=== PATIENT | female | born 1980 | race Caucasian/White ===

== ENCOUNTER 2020-12-12 07:58 | Outpatient (REF) | payer OTHER, SELFPAY ==
[2020-12-13 07:08] LABS: CT PCR NOT DETECTED (Not Detect.); NG PCR NOT DETECTED (Not Detect.)
[2020-12-13 10:37] LABS: BV Int Neg Control Negative (Negative); BV Int Pos Control Positive (Positive)
[2020-12-15 16:16] LABS: HPV mRNA E6/E7 rflx Not Detected (Not Detected)
== END 2020-12-12 07:59 | disposition home or self-care (01) ==
LOC: HO.LAB 07:58
PROVIDERS: PCP Internal Medicine; Visit Provider Advanced Practice Midwife
DX: Z01.411 Encounter for gynecological examination (general) (routine) with abnormal findings (principal); Z11.51 Encounter for screening for human papillomavirus (HPV); N93.9 Abnormal uterine and vaginal bleeding, unspecified; N92.1 Excessive and frequent menstruation with irregular cycle; F17.200 Nicotine dependence, unspecified, uncomplicated; Z20.2 Contact with and (suspected) exposure to infections with a predominantly sexual mode of transmission
CPT/HCPCS: 87480; 87491; 87510; 87591; 87624; 87660; 88142

== ENCOUNTER 2020-12-15 10:51 | Emergency (ER) | payer OTHER, SELFPAY ==
--- NOTE | ~2020-12-15 | CT_ITS ---
EXAMINATION: CT ABDOMEN AND PELVIS WITHOUT CONTRAST CLINICAL INFORMATION: Right lower quadrant and suprapubic tenderness. IUD. COMPARISON: None TECHNIQUE: Multidetector volumetric imaging was performed from the superior aspect of the liver through the pubic symphysis. Sagittal and coronal reformatted images were obtained on the technologist's workstation. This CT examination was performed using dose optimization techniques as appropriate, variously including the following: *Automated exposure control *Adjustment of mA and/or kV according to patient size (this includes techniques or standardized protocols for targeted exams where dose is matched to indication/reason for exam; i.e. extremities or head) *Use of iterative reconstruction technique DLP: 754 mGy-cm FINDINGS: The study does not demonstrate a high level of IV contrast enhancement. However there is excretion by each kidney into the urinary collecting system. The injector information suggests 7 mL was administered and it was disarmed by user LUNG BASES: No suspicious abnormality in the visualized lower chest. There may be a trace sliding-type hiatal hernia. LIVER, GALLBLADDER, AND BILIARY TREE: No suspicious focal liver lesion. There is a 1 cm circumscribed low attenuating lesion in the ventral aspect of hepatic segment 5. This is too small to characterize. Possibilities include a cyst. There is no opaque gallstone. No biliary dilation. PANCREAS: No suspicious abnormality. No localized peripancreatic stranding. SPLEEN: Within normal limits ADRENAL GLANDS: Normal KIDNEYS AND URETERS: As described there is no dilation of the urinary collecting system on either side. However there is excretion into the collecting system bilaterally. No large renal mass. BLADDER: There is some faint dependent excreted contrast. The bladder is mildly distended. No suspicious focal lesion. GASTROINTESTINAL TRACT: There is no localized colonic wall thickening. Segments of the colon are not well distended. A small segment of a normal caliber appendix is demonstrated without surrounding stranding. There is no significant small bowel dilation. There is fatty prominence of the ileocecal valve. ABDOMINAL WALL: No significant hernia is appreciated. LYMPH NODES: There are no measurably enlarged abdominal or pelvic lymph nodes. There is no free intraperitoneal fluid. VASCULAR: There is no abdominal aortic aneurysm. PELVIC VISCERA: There is an IUD present. The uterus is bulky. There are contour abnormalities isodense with the myometrium suggesting fibroids. There is likely a fluid saturated tampon present. There is no suspicious adnexal mass or collection. The right ovary is not enlarged. There may be a physiologic cyst in the left ovary. OSSEOUS STRUCTURES: There is artifact related to an implanted power generator in the left gluteal soft tissues with a lead extending into the lower thoracic spinal canal. Nonaggressive appearing sclerotic lesion involving the cortex of the dorsal aspect of the right iliac wing. Similar possible bone island in the medial left iliac bone adjacent to the ventral aspect of the left SI joint. Several other small sclerotic foci likely bone islands. There is apparent ankylosis ventrally at L2/L3. CT/CT abdomen pelvis wo con IMPRESSION: There is some excreted urinary contrast without evidence of urinary obstruction. There is no CT evidence of acute appendicitis or high-grade bowel obstruction. I suspect some uterine fibroids with an IUD present.
[2020-12-15 11:34] VITALS: BP 144/89; PULSE 82; RESP 16; TEMP 36.7; O2SAT 98; BMI 31.4
--- NOTE | 2020-12-15 11:50 | ED_ITS ---
HPI - Abdominal Pain General Chief Complaint: Abdominal Pain Stated Complaint: abd pain Time Seen by Provider: 12/15/20 11:34 Source: patient Mode of arrival: ambulatory Limitations: no limitations History of Present Illness HPI narrative: 40-year-old female who presents emergency department for evaluation of abdominal pain. She states that she developed severe, constant, shooting pain in her right lower quadrant and suprapubic area of her abdomen which started suddenly at 4:00 a.m.. She states that the pain is severe and is greater than 10/10. The patient denied fever, chills, chest pain or shortness of breath. She states that she has had persistent nausea since October of 2020 and has seen a therapy administrative assistant to prescribed Zantac. She states that she vomits 2 to 3 times a week. She denied frequency, urgency, dysuria, change in her bowel movements. The patient states that she had an IUD placed 3 years prior for severe vaginal bleeding, she states that the IUD did make her periods less severe however she states she bleeds daily and uses anywhere from 1-5 tampons per day. Patient was seen by the district manager major accounts sales Lizbet Moseley on 12/12/2020 for abnormal vaginal bleeding In reviewing the note from that visit, the patient has a Mirena IUD for control for 3 years . The workup as an outpatient was to include a pelvic ultrasound to determine the position of the IUD and laboratory evaluation. Patient states she has not gotten this workup yet. The patient is fully vaccinated for COVID-19 and received the second Pfizer vaccine in July 2020. Related Data Home Medications Medication Instructions Recorded Confirmed levonorgestrel 20 mcg/24 hours (7 INTRAUTERINE 12/12/20 yrs) 52 mg intrauterine device (Mirena) Previous Rx's Medication Instructions Recorded morphine 15 mg immediate release 15 mg PO Q4-6H PRN #14 tab 12/15/20 tablet Allergies Allergy/AdvReac Type Severity Reaction Status Date / Time acetaminophen [From PERCOCET] Allergy Unknown HIVES Verified 12/12/20 08:12 oxycodone [Percocet] Allergy Unknown pruritus Verified 12/12/20 08:12 Sulfa (Sulfonamide Allergy Unknown VOMITING , Verified 12/12/20 08:12 Antibiotics) stomach [SULFA (SULFONAMIDE upset ANTIBIOTICS)] From PERCOCET Allergy Unknown HIVES Uncoded 12/12/20 08:12 sulfa drugs Allergy Unknown unknown Uncoded 12/12/20 08:12 Review of Systems Review of Systems Yes all other systems are reviewed and are negative Physical Exam Vital Signs: Vital Signs: Last Vital Signs Temp 98.1 F 12/15/20 11:34 Pulse 67 12/15/20 14:06 Resp 18 12/15/20 14:06 BP 112/79 12/15/20 14:06 Pulse Ox 100 12/15/20 14:06 Body Mass Index 31.4 Const: Other: Very pleasant and cooperative female patient, she does appear to be in distress secondary to her abdominal pain. HENMT: Head: Yes normal to inspection, Yes normocephalic and Yes atraumatic Ears: external ears normal General nose exam: Normal external nose present Face and sinus: Yes normal facial exam Mouth: Normal oral and palatal mucosa present Throat: Yes posterior oropharynx normal Eyes: General: appearance normal, both eyes and all related structures Pupils: Equal, round and reactive pupils present Neck: Neck: Yes normal visual inspection, Yes no lymphadenopathy, Yes trachea midline and Yes supple Chest: Chest palpation & inspection: normal inspection of the chest and normal palpation of entire chest wall Resp: Effort & Inspection: normal respiratory effort and able to speak in complete sentences Auscultation: clear to auscultation bilaterally Cardio: Rate: regular rate Rhythm: regular rhythm Heart sounds: S1 normal heart sound present, S2 normal heart sound present and no murmurs GI: Inspection: Yes normal to inspection Palpation (GI): Soft to palpation, Tenderness to palpation present (GI) in the RLQ (Moderate), in the RUQ (Mild) and suprapubicly (Moderate) and no guarding Auscultation: normal bowel sounds : General: Yes no CVA tenderness Back/Spine/Pelvis: Back: no CVA tenderness Skin: General skin exam: no rashes or lesions noted Neuro: Cranial nerves: Yes CN's II-XII intact bilaterally and Yes Equal, round and reactive pupils present Cognition (Neuro): normal cognition Motor exam (neuro): 5/5 motor strength present throughout Extrem: General: Yes normal to inspection Psych: Appearance: grossly normal Speech and movement: Normal speech and movement present Affect: normal affect Attitude: cooperative Thought process: Normal thought process present Thought content: Normal thought content present Course Course Course Narrative: 40-year-old female who presents emergency department for evaluation of sudden onset of right lower quadrant and suprapubic abdominal pain that started at 4:00 a.m.. The patient's pain is greater than 10/10. Vital signs revealed an elevated blood pressure of 144/89 otherwise unremarkable. The patient's exam did reveal mild right upper quadrant and moderate right lower quadrant and moderate suprapubic tenderness. The patient does have an IUD and she recently saw her district manager major accounts sales for abnormal bleeding and schedule as an outpatient get an ultrasound to determine the cause of her bleeding and to determine the position of the IUD. The differential diagnosis includes but is not limited to uterine perforation, ureteral stone, cholecystitis, appendicitis, colitis. I ordered a laboratory evaluation to include CBC, CMP, lipase, urinalysis, urine test. CT scan of the abdomen pelvis with IV contrast will also be obtained. Patient was ordered to get normal saline IV x1 L. her pain was treated with morphine 4 mg IV and her nausea was treated with Zofran 4 mg IV. 1331: The patient's laboratory evaluation revealed a [place] [address] otherwise was unremarkable. Urine test was negative. Urinalysis revealed 2+ blood. The patient only got minimal relief from her 1st dose of morphine therefore she was given a 2nd dose of morphine [address] scan has not been done and states there was difficulty establishing IV access on this patient. 1612: The patient's CT scan of the abdomen pelvis did not reveal an acute cause for the patient's pain. The patient does have an irregular shaped uterus which is most likely consistent with fibroids. The IUD is in place.. The patient get some relief with the IV morphine however her IV line is no longer function. Patient was ordered to get morphine 8 mg IM. The patient will be discharged home. She was advised to take Tylenol and ibuprofen for pain. For pain not relieved by these medications she was prescribed morphine 15 mg every 4 hours as needed. Patient was advised to follow-up with her OBGYN for further evaluation and return if her symptoms get worse or she develops any new symptoms that are concerning to her. MDM - Abdominal Pain Lab Data Result diagrams: 12/15/20 12:12 12/15/20 12:57 Labs: Lab Results 12/15/20 12/15/20 12/15/20 Range/Units 12:12 12:57 12:57 WBC 11.3 H (4.8-10.8) X10*3/uL RBC 4.74 (4.20-5.50) X10*6/uL Hgb 16.3 H (12.0-16.0) g/dl Hct 45.6 (37-47) % MCV 96.2 (80-98) fL MCH 34.4 H (27.0-33.0) pg MCHC 35.7 H (31.0-35.0) g/dl RDW 12.3 (11.0-16.0) % Plt Count 303 (160-400) X10*3/uL MPV 9.1 L (9.4-12.3) fL Immature Gran % (Auto) 0.4 (0.0-0.4) % Neut % (Auto) 73.9 H (45-73) % Lymph % (Auto) 14.1 L (20-40) % Maury % (Auto) 8.2 (2-11) % Eos % (Auto) 2.2 (0-4) % Baso % (Auto) 1.2 (0-2) % Lymph # (Auto) 1.6 (1.2-4.9) X10*3/uL Maury # (Auto) 0.9 (0.1-1.2) X10*3/uL Eos # (Auto) 0.3 (0.0-0.4) X10*3/uL Baso # (Auto) 0.1 (0.0-0.2) X10*3/uL Abs Immat Gran (auto) 0.04 H (0.00-0.03) X10*3/uL Absolute Neuts (auto) 8.3 (2.0-8.3) X10*3/uL Absolute Nucleated RBC 0.000 (0.0-0.012) X10*3/uL Nucleated RBC % (auto) 0.0 (0.0-0.2) /100WBC Sodium 140 (135-145) mmol/L Potassium 4.1 (3.3-5.1) mmol/L Chloride 110 H (96-108) mmol/L Carbon Dioxide 23 (22-29) mmol/L Anion Gap 11 L (12-20) BUN 7 L (9-16) mg/dL Creatinine 0.84 (0.5-1.4) mg/dL Estim Creat Clear Calc 97.7 Estimated GFR > 60 Random Glucose 88 (60-115) mg/dL Calcium 9.1 (8.4-10.2) mg/dL Total Bilirubin 0.5 (0.0-1.0) mg/dL AST 12 (5-31) U/L ALT 19 (0-31) U/L Alkaline Phosphatase 84 (39-117) U/L Total Protein 6.3 L (6.5-8.0) g/dL Albumin 3.9 (3.5-5.0) g/dL Lipase 21 (8-78) U/L Urine Color YELLOW Urine Appearance CLEAR Urine pH 7.0 (5.0-8.0) Ur Specific [place] 1.010 (1.005-1.025) Urine Protein NEG (NEG-TRACE) MG/DL Urine Glucose (UA) NEG (NEG) MG/DL Urine Ketones NEG (NEG) MG/DL Urine Blood 2+ H (NEG) Urine Nitrite NEG (NEG) Ur Leukocyte Esterase NEG (NEG) Urine RBC 0-2 (0) /HPF Urine WBC 0 (0-4) /HPF Ur Squamous Epith Cells TRACE /LPF Urine Bacteria TRACE /LPF Urine Test (NEGATIVE) 12/15/20 Range/Units 12:57 WBC (4.8-10.8) X10*3/uL RBC (4.20-5.50) X10*6/uL Hgb (12.0-16.0) g/dl Hct (37-47) % MCV (80-98) fL MCH (27.0-33.0) pg MCHC (31.0-35.0) g/dl RDW (11.0-16.0) % Plt Count (160-400) X10*3/uL MPV (9.4-12.3) fL Immature Gran % (Auto) (0.0-0.4) % Neut % (Auto) (45-73) % Lymph % (Auto) (20-40) % Maury % (Auto) (2-11) % Eos % (Auto) (0-4) % Baso % (Auto) (0-2) % Lymph # (Auto) (1.2-4.9) X10*3/uL Maury # (Auto) (0.1-1.2) X10*3/uL Eos # (Auto) (0.0-0.4) X10*3/uL Baso # (Auto) (0.0-0.2) X10*3/uL Abs Immat Gran (auto) (0.00-0.03) X10*3/uL Absolute Neuts (auto) (2.0-8.3) X10*3/uL Absolute Nucleated RBC (0.0-0.012) X10*3/uL Nucleated RBC % (auto) (0.0-0.2) /100WBC Sodium (135-145) mmol/L Potassium (3.3-5.1) mmol/L Chloride (96-108) mmol/L Carbon Dioxide (22-29) mmol/L Anion Gap (12-20) BUN (9-16) mg/dL Creatinine (0.5-1.4) mg/dL Estim Creat Clear Calc Estimated GFR Random Glucose (60-115) mg/dL Calcium (8.4-10.2) mg/dL Total Bilirubin (0.0-1.0) mg/dL AST (5-31) U/L ALT (0-31) U/L Alkaline Phosphatase (39-117) U/L Total Protein (6.5-8.0) g/dL Albumin (3.5-5.0) g/dL Lipase (8-78) U/L Urine Color Urine Appearance Urine pH (5.0-8.0) Ur Specific [place] (1.005-1.025) Urine Protein (NEG-TRACE) MG/DL Urine Glucose (UA) (NEG) MG/DL Urine Ketones (NEG) MG/DL Urine Blood (NEG) Urine Nitrite (NEG) Ur Leukocyte Esterase (NEG) Urine RBC (0) /HPF Urine WBC (0-4) /HPF Ur Squamous Epith Cells /LPF Urine Bacteria /LPF Urine Test NEGATIVE (NEGATIVE) Discharge Plan Discharge Clinical Impression: Dysfunctional uterine bleeding Abdominal pain Qualifiers: Abdominal location: lower abdomen, unspecified Qualified Code(s): R10.30 - Lower abdominal pain, unspecified Patient Disposition: Home, Self-Care Instructions: Dysfunctional Uterine Bleeding (ED), Abdominal Pain (ED) Additional Instructions: Your blood work was unremarkable. Urinalysis was unremarkable as well. The CT scan of your abdomen pelvis revealed that the IUD was in the uterus. Your uterus has an irregular shape which suggesting that you might have fibroids and this might explain why you have abnormal bleeding. The CT scan did not reveal a clear cause for your pain. Take ibuprofen 200 mg pills, 3 pills every 6 hours as needed for pain. Take Tylenol (acetaminophen) 500 mg pills, 2 pills every 4-6 hours as needed for pain. For pain not relieved by ibuprofen or Tylenol take morphine 15 mg pills, 1 pill every 4 hours as needed for pain. Do not drive or work while taking this medication since they can cause sleepiness. Morphine is a narcotic medication that can be addicting. If you are concerned about addiction you can ask the pharmacist for less pills or do not get this prescription filled. You should contact your OBGYN and complete the outpatient workup as per their directions. Follow-up with your doctor in 2 days. Please return to the emergency department if your symptoms get worse or if you develop any symptoms that are concerning to you. Prescriptions: New morphine 15 mg tablet 15 mg PO Q4-6H PRN (Reason: pain) Qty: 14 RF: 0 No Action Mirena 20 mcg/24 hours (7 yrs) 52 mg intrauterine device intrauterine RF: 0 PMFSH Past Medical History PMFSH Narrative: Past medical history: None. Past surgical history: C- section. Social history: The patient smokes greater than 1 pack of cigarettes per day times 15 years, she drinks 1-2 glasses of wine twice a week. She denies drug use. Medical History delivery delivered Family History Family History Mother Heart attack, Onset Age: 35 Maternal Aunt Breast cancer Paternal Aunt Breast cancer Family/Other Breast cancer Social History Social History Alcohol intake: current Alcohol intake frequency: a few times a week Tobacco use type: Cigarette Cigarettes Per Day: 22 Advance Directives: No Current occupational status: employed Gender identity: Female
[2020-12-15 12:16] LABS: MANUAL DIFF FLAG NO
[2020-12-15 12:18] LABS: Basophils Absolute Auto 0.1 X10*3/uL (0.0-0.2); Basophils Percent Auto 1.2 % (0-2); Eosinophils Absolute Auto 0.3 X10*3/uL (0.0-0.4); Eosinophils Percent Auto 2.2 % (0-4); Hematocrit 45.6 % (37-47); Hemoglobin 16.3 g/dl (12.0-16.0); Imm Gran Abs Auto 0.04 X10*3/uL (0.00-0.03); Imm Gran Pct Auto 0.4 % (0.0-0.4); Lymphocytes Absolute Auto 1.6 X10*3/uL (1.2-4.9); Lymphocytes Percent Auto 14.1 % (20-40); Mean Corpuscular HGB Conc 35.7 g/dl (31.0-35.0); Mean Corpuscular Hemoglobin 34.4 pg (27.0-33.0); Mean Corpuscular Volume 96.2 fL (80-98); Mean Platelet Volume 9.1 fL (9.4-12.3); Monocytes Absolute Auto 0.9 X10*3/uL (0.1-1.2); Monocytes Percent Auto 8.2 % (2-11); Neutrophils Absolute Auto 8.3 X10*3/uL (2.0-8.3); Neutrophils Percent Auto 73.9 % (45-73); Platelet Count 303 X10*3/uL (160-400); Red Blood Count 4.74 X10*6/uL (4.20-5.50); Red Cell Distribution Width 12.3 % (11.0-16.0); White Blood Count 11.3 X10*3/uL (4.8-10.8)
[2020-12-15] MEDS: Morphine Sulfate 4 MG/ML CARTRIDGE IVPUSH ×2 (12:58→13:59)
[2020-12-15] MEDS: ondansetron HCL 4 MG/2 ML VIAL IVPUSH (12:58)
[2020-12-15] MEDS: 0.9 % Sodium Chloride 1,000 ML 999 ML IV (12:58)
[2020-12-15 13:16] LABS: Appearance Urine CLEAR; Color Urine YELLOW; Glucose Urine UA NEG (NEG); Leukocyte Esterase Urine NEG (NEG); Nitrite Urine NEG (NEG); UACC Culture Trigger NO; Urine Blood 2+ (NEG); Urine Ketones NEG (NEG); Urine Protein NEG (NEG-TRACE)
[2020-12-15 13:20] LABS: UPreg QC Valid YES; Urine Pregnancy NEGATIVE (NEGATIVE)
[2020-12-15 13:23] LABS: Alanine Aminotransferase 19 U/L (0-31); Albumin Level 3.9 g/dL (3.5-5.0); Alkaline Phosphatase 84 U/L (39-117); Anion Gap 11 (12-20); Aspartate Amino Transferase 12 U/L (5-31); Bilirubin Total 0.5 mg/dL (0.0-1.0); Blood Urea Nitrogen 7 mg/dL (9-16); Calcium 9.1 mg/dL (8.4-10.2); Carbon Dioxide 23 mmol/L (22-29); Chloride 110 mmol/L (96-108); Creatinine Clr Calc Pharmacy 97.7; Estimated Glomerular Filt Rate > 60; Glucose Random 88 mg/dL (60-115); Lipase 21 U/L (8-78); Potassium 4.1 mmol/L (3.3-5.1); Sodium 140 mmol/L (135-145); Total Protein 6.3 g/dL (6.5-8.0)
[2020-12-15 13:31] LABS: RBC Urine 0-2 /HPF (0); WBC Urine 0 /HPF (0-4)
[2020-12-15 13:32] LABS: Bacteria Urine TRACE /LPF; Squamous Epithelial Cell Urine TRACE /LPF
[2020-12-15 14:06] VITALS: BP 112/79; PULSE 67; RESP 18; O2SAT 100
[2020-12-15 16:34] VITALS: BP 107/65; PULSE 63; RESP 17; O2SAT 99
[2020-12-15] MEDS: Morphine Sulfate 4 MG/ML CARTRIDGE 8 MG IM (17:25)
== END 2020-12-15 17:58 | disposition home or self-care (01) ==
PROVIDERS: Emergency Provider Emergency Medicine Emergency Medical Services; PCP Internal Medicine
DX: N93.8 Other specified abnormal uterine and vaginal bleeding (principal); R10.31 Right lower quadrant pain; F17.210 Nicotine dependence, cigarettes, uncomplicated; Z71.6 Tobacco abuse counseling; Z79.899 Other long term (current) drug therapy
CPT/HCPCS: 36415; 74176; 80053; 81001; 81025; 83690; 85025; 96361; 96372; 96374; 96375; 96376; 99284; J2270; J2405

== ENCOUNTER → 2020-12-24 13:41 | Outpatient (BNVA) | payer OTHER, SELFPAY | PROVIDERS: PCP Internal Medicine; Visit Provider Advanced Practice Midwife | DX: N93.9 Abnormal uterine and vaginal bleeding, unspecified (principal); N92.1 Excessive and frequent menstruation with irregular cycle; N76.0 Acute vaginitis; Z97.5 Presence of (intrauterine) contraceptive device; R10.2 Pelvic and perineal pain; B96.89 Other specified bacterial agents as the cause of diseases classified elsewhere | CPT/HCPCS: 81003; 81025 ==

== ENCOUNTER 2020-12-24 15:28 | Emergency (ER) | payer OTHER, SELFPAY ==
[2020-12-24 16:06] VITALS: BP 142/83; PULSE 79; RESP 18; TEMP 36.7; O2SAT 98; BMI 31.3
--- NOTE | 2020-12-24 16:10 | ED_ITS ---
HPI - Recheck/Abnormal Lab/Rx General Chief Complaint: Urogenital-Female Stated Complaint: abnormal cat scan Time Seen by Provider: 12/24/20 16:06 Related Data Home Medications Medication Instructions Recorded Confirmed levonorgestrel 20 mcg/24 hours (7 INTRAUTERINE 12/12/20 yrs) 52 mg intrauterine device (Mirena) tramadol 50 mg tablet 50 mg PO TID PRN 12/24/20 Previous Rx's Medication Instructions Recorded morphine 15 mg immediate release 15 mg PO Q4-6H PRN #14 tab 12/15/20 tablet morphine 15 mg immediate release 15 mg PO Q4-6H PRN #14 tab 12/15/20 tablet doxycycline hyclate 100 mg capsule 100 mg PO BID 14 Days #28 cap 12/24/20 metronidazole 500 mg tablet 500 mg PO BID 14 Days #28 tab 12/24/20 Allergies Allergy/AdvReac Type Severity Reaction Status Date / Time acetaminophen [From PERCOCET] Allergy Unknown HIVES Verified 12/24/20 13:54 oxycodone [Percocet] Allergy Unknown pruritus Verified 12/24/20 13:54 Sulfa (Sulfonamide Allergy Unknown VOMITING , Verified 12/24/20 13:54 Antibiotics) stomach [SULFA (SULFONAMIDE upset ANTIBIOTICS)] From PERCOCET Allergy Unknown HIVES Uncoded 12/12/20 08:12 sulfa drugs Allergy Unknown unknown Uncoded 12/12/20 08:12 [facility] Past Medical History Medical History delivery delivered Family History Family History Mother Heart attack, Onset Age: 35 Maternal Aunt Breast cancer Paternal Aunt Breast cancer Family/Other Breast cancer Social History Social History Alcohol intake: current Alcohol intake frequency: a few times a week Tobacco use type: Cigarette Cigarettes Per Day: 22 Advance Directives: No Advance Directives Information Provided: No Current occupational status: employed Gender identity: Female Physical Exam Vital Signs: Vital Signs: Last Vital Signs Temp 98.1 F 12/24/20 16:06 Pulse 79 12/24/20 16:06 Resp 18 12/24/20 16:06 BP 142/83 H 12/24/20 16:06 Pulse Ox 98 12/24/20 16:06 Body Mass Index 31.3 Course Course Course Narrative: 1610-This is a rapid medical exam. 40 yo female here from OB office with concern for ?PID, also concern for abnormal CT scan done last week here in ED. Patient does reports right sided abdominal pain which radiates to right back. Will check labs, CT NG. Had urine done today in OB office. Deferred additional HPI, ROS, and PE to primary provider MDM - Recheck/Abnormal Lab/Rx Lab Data Labs: Lab Results 12/24/20 Range/Units 17:53 Chlam trachomat DNA PCR Cancelled N.gonorrhoeae DNA (PCR) Cancelled Discharge Plan Discharge Clinical Impression: Urinary tract infection Patient Disposition: Elopement Prescriptions: No Action morphine 15 mg tablet 15 mg PO Q4-6H PRN (Reason: pain) Qty: 14 RF: 0 morphine 15 mg tablet 15 mg PO Q4-6H PRN (Reason: pain) Qty: 14 RF: 0 Mirena 20 mcg/24 hours (7 yrs) 52 mg intrauterine device intrauterine RF: 0 tramadol 50 mg tablet 50 mg PO TID PRNRF: 0 doxycycline hyclate 100 mg capsule 100 mg PO BID 14 Days Qty: 28 RF: 0 metronidazole 500 mg tablet 500 mg PO BID 14 Days Qty: 28 RF: 0 Interventions: ED Discharge Assessment Last Done: 12/24/20 18:25 Discharge Date/Time: 12/24/20 19:09
== END 2020-12-24 19:09 | disposition left against medical advice (07) ==
LOC: HO.ED 19:07
PROVIDERS: Emergency Provider Emergency Medicine; PCP Internal Medicine
DX: N39.0 Urinary tract infection, site not specified (principal); R79.89 Other specified abnormal findings of blood chemistry; F17.210 Nicotine dependence, cigarettes, uncomplicated; Z71.6 Tobacco abuse counseling; Z79.899 Other long term (current) drug therapy
CPT/HCPCS: 99283

== ENCOUNTER 2021-01-01 13:40 | Outpatient (REF) | payer OTHER, SELFPAY ==
--- NOTE | ~2021-01-01 | US_ITS ---
EXAMINATION: US PELVIS CLINICAL INFORMATION: Abnormal uterine bleeding COMPARISON: Previous CT of the abdomen and pelvis December 2020 and pelvic ultrasound most recent July 2011 TECHNIQUE: Ultrasound of the pelvis is performed using both transabdominal and transvaginal transducers along with Doppler. Transvaginal imaging is performed due to inadequate visualization transabdominally. FINDINGS: The uterus is anteverted and measures 11.4 x 5.5 x 5.7 cm in dimension. There is an IUD in the uterus in satisfactory position. There are 2 focal uterine lesions suggestive of fibroids measuring 2.1 x 1.5 x 2 cm in the right posterior uterine body and 2.3 x 2 x 2 cm subserosal to the right anterior uterine body. Endometrial thickness is normal measuring 1.1 cm. The ovaries are normal-appearing. The right ovary measures 3.5 x 1.9 x 2.5 cm and the left ovary measures 3.8 x 2.5 x 2.4 cm. There is no fluid in the pelvis. US/US pelvic and transvaginal IMPRESSION: IUD in the uterus in satisfactory position. Normal thickness endometrium measuring 11 mm. 2 uterine fibroids. Normal-appearing ovaries.
== END 2021-01-01 13:41 | disposition home or self-care (01) ==
LOC: HO.US 13:40
PROVIDERS: PCP Internal Medicine; Visit Provider Advanced Practice Midwife
DX: N93.9 Abnormal uterine and vaginal bleeding, unspecified (principal); N92.1 Excessive and frequent menstruation with irregular cycle; Z97.5 Presence of (intrauterine) contraceptive device
CPT/HCPCS: 76830; 76856

== ENCOUNTER → 2021-01-15 08:37 | Outpatient (BNVA) | payer OTHER, SELFPAY | PROVIDERS: Visit Provider Advanced Practice Midwife ==

== ENCOUNTER 2021-01-24 13:27 | Outpatient (REF) | payer OTHER, SELFPAY | END 2021-01-24 13:28 | disposition home or self-care (01) | LOC: HO.LAB 13:27 | PROVIDERS: Visit Provider Advanced Practice Midwife | DX: Z30.432 Encounter for removal of intrauterine contraceptive device (principal); N93.9 Abnormal uterine and vaginal bleeding, unspecified | CPT/HCPCS: 58100; 58301; 88305 ==

== ENCOUNTER → 2021-02-07 11:11 | Outpatient (BNVA) | payer OTHER, SELFPAY | PROVIDERS: Visit Provider Advanced Practice Midwife ==

== ENCOUNTER 2021-02-12 15:06 | Outpatient (REF) | payer OTHER, SELFPAY ==
--- NOTE | ~2021-02-12 | MM_ITS ---
EXAMINATION: MM SCREENING DIGITAL BREAST TOMOSYNTHESIS, BILATERAL CLINICAL INFORMATION: Screening. Asymptomatic. The lifetime risk of breast cancer based on the Tyrer-Cuzick Model is 10.8%. COMPARISON: Mammography: None. TECHNIQUE: Digital breast tomosynthesis is performed in both the craniocaudal and mediolateral oblique views along with computer-aided detection (CAD). Synthesized 2D images are generated from the tomosynthesis. FINDINGS: There are scattered areas of fibroglandular density (ACR BI-RADS breast composition Category b). Examination of the right breast does not demonstrate any abnormal dominant mass or suspicious grouping of microcalcifications. 2 views of the left breast demonstrate questioned region of architectural distortion about 1 cm from the nipple superiorly for which spot compression views are recommended. Radiology staff will contact patient to obtain this study. MM/MM tomosynthesis screening BI IMPRESSION: Left breast density for further evaluation as described with spot compression views. ASSESSMENT: BI-RADS 0: Incomplete - Need Additional Imaging Evaluation RECOMMENDATION: 1. Additional views of the left breast. 2. Targeted ultrasound if warranted after review of the additional views. 3. Radiology department staff will contact the patient for additional imaging. This patient's information was entered into a reminder system with a target due date for their next mammogram.
== END 2021-02-12 15:07 | disposition home or self-care (01) ==
LOC: HO.MAMMO 15:06
PROVIDERS: Visit Provider Advanced Practice Midwife
DX: Z12.31 Encounter for screening mammogram for malignant neoplasm of breast (principal)
CPT/HCPCS: 77063; 77067

== ENCOUNTER 2021-02-14 13:11 | Outpatient (REF) | payer OTHER, SELFPAY ==
--- NOTE | ~2021-02-14 | MM_ITS ---
EXAMINATION: MM DIAGNOSTIC DIGITAL BREAST MAMMOGRAM, LEFT TARGETED LEFT BREAST ULTRASOUND CLINICAL INFORMATION: Asymmetric density anterior left breast. COMPARISON: Mammography: 02/12/2021. TECHNIQUE: Digital breast imaging obtained in spot compression craniocaudal and 90 degree mediolateral views. Targeted left breast ultrasound. FINDINGS: There are scattered areas of fibroglandular density (ACR BI-RADS breast composition Category b). Additional views show no significant mass, architectural abnormality, or abnormal calcifications. There is effacement of the majority of dense tissue with some residual dense parenchyma but without focal mass appreciated within the retroareolar region. Targeted left breast ultrasound did not demonstrate any abnormal cystic or solid mass. No region of abnormal distal sound shadowing appreciated. Results are discussed with the patient at time of visit. MM/MM tomosynthesis added views L IMPRESSION: No mammographic or ultrasound findings to suggest malignancy. ASSESSMENT: BI-RADS 1: Negative RECOMMENDATION: Routine annual mammography screening. This patient's information was entered into a reminder system with a target due date for their next mammogram.
--- NOTE | ~2021-02-14 | US_ITS ---
EXAMINATION: US DIAGNOSTIC ULTRASOUND BREAST, LEFT CLINICAL INFORMATION: Question region of architectural distortion anterior left breast.. COMPARISON: Mammography of same day and February 12, 2021. TECHNIQUE: Ultrasound of the breast is performed with real-time vera scale imaging and color Doppler. FINDINGS: Targeted left breast ultrasound did not demonstrate any abnormal cystic or solid mass. No region of abnormal distal sound shadowing appreciated. Results are discussed with the patient at time of visit. US/US breast LT limited IMPRESSION: No mammographic or ultrasound findings to suggest malignancy. ASSESSMENT: BI-RADS 1: Negative RECOMMENDATION: Routine annual mammography screening.
== END 2021-02-14 13:12 | disposition home or self-care (01) ==
LOC: HO.MAMMO 13:11
PROVIDERS: Visit Provider Advanced Practice Midwife
DX: R92.2 Inconclusive mammogram (principal)
CPT/HCPCS: 76642; 77061; 77065

== ENCOUNTER 2023-10-20 12:25 | Outpatient (AMB) | payer BC, SELFPAY ==
[2023-10-20 13:02] VITALS: BP 110/72; BMI 32.3
--- NOTE | 2023-10-20 13:02 | A.OFFVIS_ITS ---
Vital Signs 10/20/23 13:02 Height 5 ft 6 in Weight 200 lb BMI 32.3 BP 110/72 Intake Visit Reasons: ? 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 Allergies acetaminophen [From PERCOCET] Allergy (Unknown, Verified 10/20/23 13:03) HIVES oxycodone [Percocet] Allergy (Unknown, Verified 10/20/23 13:03) pruritus Sulfa (Sulfonamide Antibiotics) [SULFA (SULFONAMIDE ANTIBIOTICS)] Allergy (Unknown, Verified 10/20/23 13:03) VOMITING , stomach upset From PERCOCET Allergy (Unknown, Uncoded 12/12/20 08:12) HIVES sulfa drugs Allergy (Unknown, Uncoded 12/12/20 08:12) unknown Is last menstrual period known: Yes Last menstrual period: 09/15/23 HPI Comments Details: Patient is here today with concerns said she had skipped her last cycle in his about 5 weeks overdue. LMP September 14, regular cycles up until that date. Uses withdrawal method. Denies any hot flashes. Uses a clear blue parker to test for FSH and she reports it is negative. Occasional breast tenderness not presently. Denies any stress, surgeries, medical conditions or other concerns for stress. She denies any facial hair growth or new onset of acne. She did not PFSH Medical History (Updated 10/20/23 @ 13:36 by Lizbet Moseley CNM) Irregular menses delivery delivered Surgical History (Updated 10/20/23 @ 13:04 by MEGAN Calderon) Hx of tonsillectomy History of back surgery Hx of section Family History (Updated 10/20/23 @ 13:05 by MEGAN Calderon) Mother Heart attack, Onset Age: 35 Maternal Aunt Breast cancer Paternal Aunt Breast cancer Family/Other Breast cancer Maternal Aunt Ovarian cancer Maternal Aunt Colon cancer Social History Alcohol intake: current Alcohol intake frequency: a few times a week Tobacco use type: Cigarette Cigarettes Per Day: 22 Current occupational status: employed Gender identity: Female Female Reproductive History Menstrual Age of Menarche: 9 Duration of menses: 3-5 days Date of last menstrual period: 09/15/23 Total pregnancies: 1 Full term: 1 Number of Living Children: 1 Review of Systems Const All systems reviewed & are unremarkable except as noted in HPI and below Endo Reports no additional complaints Physical Exam Vital Signs: Last Vital Signs BP 110/72 10/20/23 13:02 BMI result Body Mass Index 32.3 Const General: cooperative, healthy appearing and no acute distress Psych Appearance: well kempt Attitude: cooperative Thought process: Normal thought process present Results AMB Test Urine AMB Test Urine Negative Last Edit by MEGAN Calderon on 10/20/23 13:17 Assessment & Plan Assessment & Plan (1) Irregular menses: Code(s): N92.6 - Irregular menstruation, unspecified Category: Medical Plan Discussed: She has fasting blood work from her primary care ordered that she has not been able to get done due to the faxing of the order not being received. She agrees to do labs today. Monitor menstrual cycles, report any unscheduled bleeding, bleeding episodes <24 days apart or heavy/prolonged menstrual bleeding. Call the office for a follow up for any concerns. Perimenopause versus menopause diagnosis and symptoms. Continue use of fertility parker. Declines control. Advised to schedule annual exam. And to follow up p.r.n., pending labs. All of her questions and concerns were addressed to the best of my ability and shared decision making. She is agreeable to the plan of care. This note is constructed using voice recognition software. 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 Orders: Orders AMB HCG Urine Test Today Z32.02 - Encounter for test, result negative HCG Quantitative Today N92.6 - Irregular menstruation, unspecified, O20.0 - Threatened Follicle Stimulating Hormone Today N92.6 - Irregular menstruation, unspecified Estrad Free (Tot Ultra + Free) Today N92.6 - Irregular menstruation, un specified Thyroid Stimulating Hormone Today N92.1 - Excessive and frequent menstruation with irregular cycle, N92.6 - Irregular menstruation, unspecified Prolactin Today N92.6 - Irregular menstruation, unspecified Coding Level of Care Code Est Pt Level 3 (72671) Diagnoses Irregular menses N92.6
== END 2023-10-20 13:42 | disposition home or self-care (01) ==
PROVIDERS: Visit Provider Advanced Practice Midwife
DX: N92.6 Irregular menstruation, unspecified (principal); Z32.02 Encounter for pregnancy test, result negative
CPT/HCPCS: 99213

== ENCOUNTER 2023-10-20 12:25 | Outpatient (REF) | payer BC, SELFPAY ==
[2023-10-20 14:40] LABS: HCG Quantitative < 2 mIU/mL; Thyroid Stimulating Hormone 4.78 uIU/mL (0.32-4.0)
[2023-10-21 08:38] LABS: Follicle Stimulating Hormone 3.7 mIU/mL; Prolactin 7.2 ng/mL
[2023-10-31 23:14] LABS: Estradiol Free 0.57 pg/mL; Estradiol, Ultrasensitive 28 pg/mL
== END 2023-10-20 12:26 | disposition home or self-care (01) ==
LOC: HO.LAB 12:25
PROVIDERS: Visit Provider Advanced Practice Midwife
DX: O20.0 Threatened abortion (principal); N92.6 Irregular menstruation, unspecified; N92.1 Excessive and frequent menstruation with irregular cycle
CPT/HCPCS: 36415; 81025; 82670; 82681; 83001; 84146; 84443; 84702

== ENCOUNTER 2023-11-03 14:29 | Outpatient (AMB) | payer SELFPAY ==
--- NOTE | 2023-11-03 14:29 | MHC.OFFVIS ---
Intake Visit Reasons: TV lab results Intake Note: cell #[phone] Allergies acetaminophen [From PERCOCET] Allergy (Unknown, Verified 11/03/23 14:30) HIVES oxycodone [Percocet] Allergy (Unknown, Verified 11/03/23 14:30) pruritus Sulfa (Sulfonamide Antibiotics) [SULFA (SULFONAMIDE ANTIBIOTICS)] Allergy (Unknown, Verified 11/03/23 14:30) VOMITING , stomach upset From PERCOCET Allergy (Unknown, Uncoded 12/12/20 08:12) HIVES sulfa drugs Allergy (Unknown, Uncoded 12/12/20 08:12) unknown HPI Comments Details: Tele warne visit 15:05-15:10. I spent 10 minutes speaking with the patient on the phone plus an additional 5 minutes reviewing the chart and 5 minutes updating the medical record for a total of 20 minutes. Patient presents via phone to discuss: Lab results, history of irregular menstrual cycles, skipping up to 5 weeks intervals. TSH is 4.78. Remainder of the labs are normal. She reports 19 years ago she had an abnormal level took meds for 1 year and then no longer required treatment. [facility] Medical History (Updated 10/20/23 @ 13:36 by Lizbet Moseley CNM) Irregular menses delivery delivered Surgical History (Updated 10/20/23 @ 13:04 by MEGAN Calderon) Hx of tonsillectomy History of back surgery Hx of section Family History (Updated 10/20/23 @ 13:05 by MEGAN Calderon) Mother Heart attack, Onset Age: 35 Maternal Aunt Breast cancer Paternal Aunt Breast cancer Family/Other Breast cancer Maternal Aunt Ovarian cancer Maternal Aunt Colon cancer Social History Alcohol intake: current Alcohol intake frequency: a few times a week Tobacco use type: Cigarette Cigarettes Per Day: 22 Current occupational status: employed Gender identity: Female Female Reproductive History Menstrual Age of Menarche: 9 Physical Exam Const General: cooperative, healthy appearing, no acute distress and alert Telehealth Telehealth Telehealth [facility]: [facility] Location of provider rendering services: practice address Location of patient: other Patient Identification confirmed using: Name, : Yes Telehealth method: video Patient verbally consented to treatment: Yes Patient verbally consented to billing insurance company: Yes Patient informed of any privacy concerns related to visit: Yes Assessment & Plan Assessment & Plan (1) Encounter to discuss test results: Code(s): Z71.2 - Person consulting for explanation of examination or test findings Category: Medical (2) Irregular menses: Code(s): N92.6 - Irregular menstruation, unspecified Category: Medical (3) Abnormal thyroid blood test: Code(s): R79.89 - Other specified abnormal findings of blood chemistry (4) Perimenopause: Code(s): N95.1 - Menopausal and female climacteric states Plan Discussed: Reviewed her labs, recommended she follow up with her primary care to re-evaluate the thyroid level. Most likely she is also perimenopausal and may skip randomly cycles for several months. Menopause is after 12 consecutive months of missing cycles. Monitor menstrual cycles, report any unscheduled bleeding, bleeding episodes <24 days apart or heavy/prolonged menstrual bleeding. Call the office for a follow up for any concerns. All of her questions and concerns were addressed to the best of my ability and shared decision making. She is agreeable to the plan of care. This note is constructed using voice recognition software. While every effort has been made to ensure accuracy, academic hospitalist errors may have been included. Coding Level of Care Code Tele Est Pt Level 3 (83818) Diagnoses Encounter to discuss test results Z71.2 Irregular menses N92.6 Abnormal thyroid blood test R79.89 Perimenopause N95.1
== END 2023-11-03 15:23 | disposition home or self-care (01) ==
LOC: HO.HWS 14:29
PROVIDERS: PCP Internal Medicine; Visit Provider Advanced Practice Midwife
DX: N92.6 Irregular menstruation, unspecified (principal); R79.89 Other specified abnormal findings of blood chemistry; N95.1 Menopausal and female climacteric states; Z71.2 Person consulting for explanation of examination or test findings
CPT/HCPCS: 99213

== ENCOUNTER → 2023-11-03 14:29 | Outpatient (BNVA) | payer BC, SELFPAY | PROVIDERS: PCP Internal Medicine; Visit Provider Advanced Practice Midwife ==